=== PATIENT | male | born 1940 | race Hispanic/Latino ===

== ENCOUNTER → 2019-01-02 | Outpatient (CLI) | payer MEDICARE | END | disposition home or self-care (01) | LOC: RAH 07:50 | PROVIDERS: ATTEND Family Medicine | DX: G31.89 Other specified degenerative diseases of nervous system (principal); R27.0 Ataxia, unspecified | CPT/HCPCS: 70551 ==

== ENCOUNTER → 2019-01-16 | Outpatient (CLI) | payer MEDICARE ==
[~2019-01-16] VITALS: Ht 172.7 cm; Wt 95.7 kg
[~2019-01-16] MED LIST: REGADENOSON 0.4 MG/5 ML PF SYG IVP SCH
== END | disposition home or self-care (01) ==
LOC: SHCH 08:09
PROVIDERS: ATTEND Internal Medicine Cardiovascular Disease
DX: R94.31 Abnormal electrocardiogram [ECG] [EKG] (principal); R60.9 Edema, unspecified
CPT/HCPCS: 78452; 93017; 96374; A9500 ×2; J2785

== ENCOUNTER → 2019-07-22 | Outpatient (CLI) | payer MEDICARE | END | disposition home or self-care (01) | LOC: RAH 10:19 | PROVIDERS: ATTEND Family Medicine | DX: M75.122 Complete rotator cuff tear or rupture of left shoulder, not specified as traumatic (principal) | CPT/HCPCS: 73221 ==

== ENCOUNTER → 2019-11-03 | Outpatient (CLI) | payer MEDICARE | END | disposition home or self-care (01) | LOC: OIH 16:05 | PROVIDERS: ATTEND Family Medicine | DX: R60.9 Edema, unspecified (principal); R06.02 Shortness of breath | CPT/HCPCS: 71046 ==

== ENCOUNTER → 2020-06-10 | Outpatient (CLI) | payer MEDICARE | END | disposition home or self-care (01) | LOC: RAH 14:23 | PROVIDERS: ATTEND Internal Medicine | DX: E04.2 Nontoxic multinodular goiter (principal) | CPT/HCPCS: 76536 ==

== ENCOUNTER 2020-09-06 08:41 | Emergency (ER) | payer MEDICARE ==
[~2020-09-06] VITALS: Ht 165.1 cm; Wt 95.3 kg
[2020-09-06 08:57] LABS: BASOPHILS % (AUTO) 0.3 % (0.0-5.0); EOSINOPHILS % (AUTO) 0.1 % (0.0-8.0); HEMATOCRIT 39.8 % (42-54); LYMPHOCYTES % (AUTO) 14.9 % (21.0-51.0); MEAN CORPUSCULAR HGB CONC 34.9 g/dL (32.0-36.0); MEAN CORPUSCULAR VOLUME 105.9 fL (79-99); NEUTROPHILS % (AUTO) 79.3 % (40.0-77.0); PLATELET COUNT (AUTO) 504 K/uL (130-400); RED BLOOD CELL COUNT(AUTO) 3.76 MIL/uL (4.50-6.20); RED CELL DISTRIBUTION WIDTH 15.4 % (11.0-15.5); WHITE BLOOD COUNT (AUTO) 10.3 K/uL (4.8-10.8)
[2020-09-06 09:14] LABS: ALBUMIN 3.7 g/dL (3.5-5.0); BILIRUBIN,TOTAL 1.6 mg/dL (0.2-1.0); CREATININE 0.7 mg/dL (0.5-1.5); POTASSIUM 3.5 mmol/L (3.5-5.1); TOTAL PROTEIN, SERUM 7.5 g/dL (6.0-8.3)
[2020-09-06] MEDS ORDERED: KETOROLAC 30MG VIAL (30MG/ML) IVP SCH (09:30)
[2020-09-06] MEDS ORDERED: 0.9%NACL 1000ML 1,000 ML IV SCH (09:30)
[2020-09-06] MEDS ORDERED: ONDANSETRON 4MG INJ IVP SCH (09:30)
[2020-09-06] MEDS ORDERED: PANTOPRAZOLE 40 MG/VIAL IVP SCH (09:30)
[2020-09-06 09:44] LABS: APPEARANCE,URINE Clear (CLEAR); BILIRUBIN,URINE Small (NEGATIVE); COLOR,URINE Dark Yellow (YELLOW); GLUCOSE, URINE (UA) Negative (NEGATIVE); KETONES,URINE 15 mg/dL (NEGATIVE); LEUKOCYTE ESTERASE ,URINE Trace (NEGATIVE); NITRATE,URINE Negative (NEGATIVE); OCCULT BLOOD,URINE Negative (NEGATIVE); PH,URINE 5.5 (5.0-8.0); PROTEIN,URINE Trace mg/dL (NEGATIVE)
[2020-09-06 10:02] LABS: BACTERIA,URINE None Seen /HPF (None Seen); RBC,URINE 0-1 /HPF (0-1); WBC,URINE 0-1 /HPF (0-1)
[2020-09-06 10:03] LABS: MUCUS,URINE Moderate LPF (None Seen)
[2020-09-06 11:14] VITALS: BP 150/84
[2020-09-06] MEDS ORDERED: ONDA22I PO (11:38)
[2020-09-06] MEDS ORDERED: DICY20TA2 PO (11:38)
[2020-09-06] MEDS ORDERED: TRAM50TA4 PO (11:38)
[2020-09-06 12:32] VITALS: BP 141/85
[2020-09-07] MEDS ORDERED: TAMS-1 PO (09:50)
[2020-09-07] MEDS ORDERED: HYDR500C2 PO ×3 (09:51→17:30)
[2020-09-07] MEDS ORDERED: FURO40TA5 PO ×2 (09:52→17:33)
[2020-09-07] MEDS ORDERED: DUTA0.5C37 PO (09:54)
[2020-09-07] MEDS ORDERED: PANT20TA18 PO (09:55)
[2020-09-07] MEDS ORDERED: SPIR50TA5 PO ×2 (09:55→17:32)
[2020-09-07] MEDS ORDERED: TRAM50TA4 PO (17:37)
[2020-09-07] MEDS ORDERED: PRED20TA3 PO (17:39)
[2020-09-08] MEDS ORDERED: LACT10SO62 PO (02:18)
[2020-09-08] MEDS ORDERED: AZIT250T9 PO (03:41)
[2020-09-08] MEDS ORDERED: LIVER AID PO (03:41)
[2020-09-08] MEDS ORDERED: ALBU2.5V2 IH (03:41)
[2020-09-08] MEDS ORDERED: METF-444 PO (04:06)
[2020-09-12] MEDS ORDERED: CIPR250T6 PO (11:02)
[2020-09-12] MEDS ORDERED: METR500T PO (11:02)
== END 2020-09-06 12:45 | disposition home or self-care (01) ==
LOC: EDH 08:41
DX: K80.20 Calculus of gallbladder without cholecystitis without obstruction (principal); Z88.5 Allergy status to narcotic agent; Z79.899 Other long term (current) drug therapy; Z98.890 Other specified postprocedural states; Z79.1 Long term (current) use of non-steroidal anti-inflammatories (NSAID)
CPT/HCPCS: 36415; 71045; 74176; 80053; 81001; 82150; 83690; 85025; 87088; 93005; 96374; 96375; 99285; C9113; J1885; J2405; J7030